=== PATIENT | female | born 1965 | race Caucasian/White ===

== ENCOUNTER → 2017-06-19 | Outpatient (CLI) | payer OTHER ==
[~2017-06-19] MED LIST: CETI10TA84 PO; DITROPAN PO; PRLSR20 PO; RANI150T3 PO; TAMO20TA47 PO; VITAMIN B12 PO
--- NOTE | 2017-06-19 13:59 | MAMMOGRAPHY REPORT ---
BILATERAL DIGITAL SCREENING MAMMOGRAM TOMOSYNTHESIS WITH CAD: 06/19/2017 CLINICAL HISTORY: Routine screening. Patient has no complaints. TECHNIQUE: Breast tomosynthesis in addition to standard 2D mammography was performed. Current study was also evaluated with a Computer Aided Detection (CAD) system. COMPARISON: Comparison is made to exams dated: 06/13/2016 mammogram, 07/06/2015 mammogram, 06/08/2015 ma mmogram, 03/31/2014 mammogram, 06/11/2012 mammogram, and 06/04/2012 mammogram - [facility]. BREAST COMPOSITION: The tissue of both breasts is extremely dense, which lowers the sensitivity of m ammography. FINDINGS: No suspicious masses, calcifications, or areas of architectural distortion are noted in ei ther breast. There has been no significant interval change compared to prior exams. There is stable architectural distortion in the right upper inner quadrant from prior lumpectomy. A few scattered be nign-appearing right breast calcifications are stable. IMPRESSION: ACR BI-RADS CATEGORY 2: BENIGN There is no mammographic evidence of malignancy. A 1 year screening mammogram is recommended. The pa tient will receive written notification of the results. Approximately 10% of breast cancers are not detected with mammography. A negative mammographic report should not delay biopsy if a clinically suggestive mass is present. Stella Alexandra M.D. /:06/19/2017 11:55:35 Senior Analytic Consultant: Keiry RIVERA)([place]liv[place])([place]), [facility] letter sent: Normal 1/2 BI-RADS Code: ACR BI-RADS Category 2: Benign
== END | disposition home or self-care (01) ==
LOC: C.MAMM 08:32
PROVIDERS: ATTEND Obstetrics & Gynecology
DX: Z12.31 Encounter for screening mammogram for malignant neoplasm of breast (principal)

== ENCOUNTER → 2017-10-09 | Outpatient (CLI) | payer OTHER ==
[~2017-10-09] MED LIST changes: -TAMO20TA47 PO; +TAMO20TA9 PO
[2017-10-09 14:10] LABS: FERRITIN 138.7 ng/ml (8.0-388.0); THYROID STIMULATING HORMONE 1.11 uIu/ml (0.300-4.500)
== END | disposition home or self-care (01) ==
LOC: C.LAB 12:27
DX: F03.90 Unspecified dementia, unspecified severity, without behavioral disturbance, psychotic disturbance, mood disturbance, and anxiety (principal); R53.83 Other fatigue